=== PATIENT | female | born 1965 | race Caucasian/White ===

== ENCOUNTER 2023-08-14 18:13 | Inpatient (IN) | payer MEDICAID ==
[~2023-08-14] VITALS: Ht 157.5 cm; Wt 61.2 kg
[2023-08-14 18:18] VITALS: O2SAT 100
[2023-08-14 22:49] LABS: BASOPHILS % 0.4 % (0.0-2.0); EOSINOPHILS % 2.9 % (0.0-5.0); HEMATOCRIT. 34.6 % (36.0-48.0); HEMOGLOBIN. 11.6 g/dL (12.0-16.0); LYMPHOCYTES % 27.6 % (20.0-50.0); MEAN CORPUSCULAR HEMOGLOBIN 28.8 pg (28.0-32.0); MEAN CORPUSCULAR HGB CONC 33.5 g/dL (31.0-37.0); MEAN CORPUSCULAR VOLUME 85.8 fL (81.0-99.0); MEAN PLATELET VOLUME 8.9 fl (7.4-10.4); MONOCYTES % 7.2 % (2.0-8.0); NEUTROPHILS % 61.9 % (40.0-76.0); PLATELET 295 x1000/uL (130-400); RED BLOOD CELL COUNT 4.03 mill/uL (4.2-5.4); RED CELL DISTRIBUTION WIDTH 13.1 % (11.6-14.6); WHITE BLOOD COUNT 9.9 x1000/uL (4.5-11.0)
[2023-08-14] MEDS: KETOROLAC 15MG/ML VIAL IV ONE (22:56)
[2023-08-14 22:59] LABS: CHLORIDE 96 mEq/L (98-107); POTASSIUM 3.5 mEq/L (3.5-5.1); SODIUM 125 mEq/L (136-145)
[2023-08-14 23:00] LABS: CALCIUM 9.1 mg/dL (8.7-10.4); CARBON DIOXIDE 21 mEq/L (21-32)
[2023-08-14 23:05] LABS: CREATININE 0.8 mg/dL (0.6-1.0); GLUCOSE 142 mg/dL (70-105); UREA NITROGEN BLOOD 10 mg/dL (9-23)
[2023-08-14 23:07] LABS: ALANINE AMINOTRANSFERASE 34 IU/L (10-49); ALBUMIN 4.2 g/dL (3.2-4.8); ASPARTATE AMINOTRANSFERASE 17 IU/L (<34)
[2023-08-14 23:08] LABS: BILIRUBIN TOTAL 0.4 mg/dL (0.1-1.0); PROTEIN TOTAL 7.5 g/dL (6.0-8.3)
[2023-08-14 23:53] LABS: CLARITY URINE CLEAR (CLEAR); COLOR URINE YELLOW (YELLOW); GLUCOSE URINE 1+ (NEGATIVE); KETONES URINE NEGATIVE (NEGATIVE); LEUKOCYTE ESTERASE URINE NEGATIVE (NEGATIVE); NITRITE URINE NEGATIVE (NEGATIVE); OCCULT BLOOD URINE NEGATIVE (NEGATIVE); PH URINE 5.5 (4.5-8.0); PROTEIN URINE NEGATIVE (NEGATIVE); UROBILINOGEN URINE 0.2 E.U./dL (0.2-1.0)
[2023-08-15 01:29] VITALS: BP 163/115; PULSE 91; RESP 21; TEMP 98.5
[2023-08-15 01:40] VITALS: BP 163/115; PULSE 91; RESP 21; TEMP 98.3
[2023-08-15] MEDS ORDERED: AMLO10TA80 PO (02:39)
[2023-08-15] MEDS ORDERED: ATOR-2 PO (02:39)
[2023-08-15] MEDS ORDERED: BENA40TA91 PO (02:39)
[2023-08-15] MEDS ORDERED: CYCL10TA21 PO (02:39)
[2023-08-15] MEDS ORDERED: DEXTROSE 50% WATER 50ML SYRINGE IV PRN (02:45)
[2023-08-15] MEDS ORDERED: IPRATROPIUM/ALBUTEROL 0.5-3(2.5)MG/3ML NEB HHN PRN (03:00)
[2023-08-15] MEDS: KETOROLAC 15MG/ML VIAL IV PRN (03:16)
[2023-08-15] MEDS: SODIUM CHLORIDE 0.9% 1,000 ML IV SCH (03:28)
[2023-08-15] MEDS: AMLODIPINE 10MG TABLET PO SCH (03:29)
[2023-08-15 04:07] LABS: BACTERIA URINE TRACE; RBC URINE 0-2 /hpf (0-2); SQUAMOUS EPITHELIAL CELL URINE FEW /lpf (RARE/1+); WBC URINE 0-2 /hpf (0-2)
[2023-08-15] MEDS ORDERED: IOHEXOL-300 100 ML BOTTLE ONE (05:33)
[2023-08-15] MEDS: BLOOD SUGAR DIAGNOSTIC STRIP TEST SCH (06:31)
[2023-08-15] MEDS: METOCLOPRAMIDE 10MG/10 ML UDC PO SCH (06:46)
[2023-08-15 06:55] LABS: BASOPHILS % 0.6 % (0.0-2.0); EOSINOPHILS % 2.3 % (0.0-5.0); HEMATOCRIT. 35.2 % (36.0-48.0); HEMOGLOBIN. 11.8 g/dL (12.0-16.0); LYMPHOCYTES % 24.3 % (20.0-50.0); MEAN CORPUSCULAR HEMOGLOBIN 28.7 pg (28.0-32.0); MEAN CORPUSCULAR HGB CONC 33.5 g/dL (31.0-37.0); MEAN CORPUSCULAR VOLUME 85.7 fL (81.0-99.0); MONOCYTES % 6.3 % (2.0-8.0); NEUTROPHILS % 66.5 % (40.0-76.0); PLATELET 260 x1000/uL (130-400); RED BLOOD CELL COUNT 4.11 mill/uL (4.2-5.4); RED CELL DISTRIBUTION WIDTH 13.2 % (11.6-14.6); WHITE BLOOD COUNT 9.1 x1000/uL (4.5-11.0)
[2023-08-15 07:12] LABS: CHLORIDE 98 mEq/L (98-107); POTASSIUM 3.7 mEq/L (3.5-5.1); SODIUM 129 mEq/L (136-145)
[2023-08-15 07:13] LABS: CARBON DIOXIDE 21 mEq/L (21-32)
[2023-08-15 07:14] LABS: CALCIUM 9.6 mg/dL (8.7-10.4)
[2023-08-15 07:18] LABS: CREATININE 0.7 mg/dL (0.6-1.0); GLUCOSE 139 mg/dL (70-105); IRON 60 ug/dL (50-170)
[2023-08-15 07:19] LABS: UREA NITROGEN BLOOD 9 mg/dL (9-23)
[2023-08-15] MEDS: INSULIN LISPRO 100 UNITS/ML SUBCUT SCH (07:20)
[2023-08-15 07:21] LABS: TOTAL IRON BINDING CAPACITY 197 ug/dl (250-425)
[2023-08-15 08:00] VITALS: BP 150/65; PULSE 96; RESP 20; TEMP 98
[2023-08-15] MEDS ORDERED: MEDICATION NOT ON FORMULARY EA (Atorvastatin Calcium 1 TAB) PO SCH (09:00)
[2023-08-15] MEDS ORDERED: MEDICATION NOT ON FORMULARY EA (Benazepril Hcl 1 TAB) PO SCH (09:00)
[2023-08-15] MEDS: FAMOTIDINE 20MG/2ML VIAL IV SCH (09:07)
[2023-08-15] MEDS: ASPIRIN 81MG EC TABLET PO SCH (09:08)
[2023-08-15] MEDS: LISINOPRIL 40MG TABLET PO SCH (09:08)
[2023-08-15] MEDS: ENOXAPARIN 40MG/0.4ML SYR SUBCUT SCH (09:09)
[2023-08-15] MEDS: CYCLOBENZAPRINE 10MG TABLET PO SCH (09:17)
[2023-08-15] MEDS: MAGNESIUM OXIDE 400MG TABLET PO SCH (10:30)
[2023-08-15 12:00] VITALS: BP 142/82; PULSE 93; RESP 21; TEMP 98.7
[2023-08-15 16:00] VITALS: BP 123/72; PULSE 104; RESP 20; TEMP 97.7
[2023-08-15] MEDS ORDERED: GADOTERATE MEGLUMINE 5 MMOL/10 ML VIAL IV ONE (18:59)
[2023-08-15 20:00] VITALS: BP 95/52; PULSE 106; RESP 20; TEMP 97.6
[2023-08-15] MEDS: ATORVASTATIN CALCIUM 40MG TABLET PO SCH (22:12)
[2023-08-16] VITALS: BP 116/69; PULSE 105; RESP 22; TEMP 97.8
[2023-08-16] MEDS: DOCUSATE SODIUM 100MG CAPSULE PO PRN (00:05)
[2023-08-16 04:00] VITALS: BP 122/77; PULSE 87; RESP 18; TEMP 97.6
[2023-08-16 08:00] VITALS: BP 118/62; PULSE 107; RESP 25; TEMP 98.3
[2023-08-16] MEDS: ACETAMINOPHEN 325MG TABLET PO PRN (09:36)
[2023-08-16 12:00] VITALS: BP 117/70; PULSE 97; RESP 25; TEMP 98.1
[2023-08-16 16:00] VITALS: BP 114/61; PULSE 107; RESP 21; TEMP 98.2
[2023-08-16 20:00] VITALS: BP 114/65; PULSE 92; RESP 21; TEMP 98.1
[2023-08-17] VITALS: BP 120/81; PULSE 95; RESP 22; TEMP 97.8
[2023-08-17 04:00] VITALS: BP 135/84; PULSE 90; RESP 18; TEMP 98
[2023-08-17 08:00] VITALS: BP 122/76; PULSE 95; RESP 11; TEMP 98
[2023-08-17 12:00] VITALS: BP 125/77; PULSE 111; RESP 17; TEMP 98.7
[2023-08-17 15:30] VITALS: BP 134/74; PULSE 95; TEMP 98.7
== END 2023-08-17 16:54 | disposition home or self-care (01) | DRG 48 ==
LOC: ER 18:13 → 3WST 08-15 00:35
PROVIDERS: ADMIT Hospitalist; ATTEND Hospitalist
DX: E11.43 Type 2 diabetes mellitus with diabetic autonomic (poly)neuropathy (principal); E87.1 Hypo-osmolality and hyponatremia; K31.84 Gastroparesis; D64.9 Anemia, unspecified; E78.5 Hyperlipidemia, unspecified; R33.8 Other retention of urine; N32.0 Bladder-neck obstruction; Z79.84 Long term (current) use of oral hypoglycemic drugs; Z87.440 Personal history of urinary (tract) infections; Z91.148 Patient's other noncompliance with medication regimen for other reason; Z79.4 Long term (current) use of insulin
CPT/HCPCS: 36415; 72158; 74177; 80048; 80053; 81003; 82962; 83036; 83540; 83550; 83735; 84443; 85025; 93005; 93970; 99285; A9577; J1650; J1815; J1885; J3490; J7030; J8597; Q9967

== ENCOUNTER 2023-10-13 10:23 | Emergency (ER) | payer MEDICAID ==
[~2023-10-13] VITALS: Ht 157.5 cm; Wt 55.8 kg
[~2023-10-13 10:23] MED LIST: AMLO10TA80 PO; ATOR-2 PO; BENA40TA91 PO; CYCL10TA21 PO
[2023-10-13 10:33] VITALS: O2SAT 100
[2023-10-13 14:38] VITALS: BP 124/78; PULSE 80; RESP 16; TEMP 98
== END 2023-10-13 15:14 | disposition home or self-care (01) ==
LOC: ER 12:01
DX: Z46.6 Encounter for fitting and adjustment of urinary device (principal); E11.9 Type 2 diabetes mellitus without complications
CPT/HCPCS: 99281

== ENCOUNTER 2023-10-30 07:33 | Emergency (ER) | payer MEDICAID ==
[~2023-10-30] VITALS: Ht 149.9 cm; Wt 69.0 kg
[2023-10-30 07:45] VITALS: O2SAT 100
[2023-10-30 10:34] LABS: CLARITY URINE CLOUDY (CLEAR); COLOR URINE YELLOW (YELLOW); GLUCOSE URINE 2+ (NEGATIVE); KETONES URINE NEGATIVE (NEGATIVE); LEUKOCYTE ESTERASE URINE 3+ (NEGATIVE); NITRITE URINE NEGATIVE (NEGATIVE); OCCULT BLOOD URINE NEGATIVE (NEGATIVE); PH URINE 5.5 (4.5-8.0); PROTEIN URINE NEGATIVE (NEGATIVE); SPECIFIC GRAVITY URINE 1.011 (1.005-1.030); UROBILINOGEN URINE 0.2 E.U./dL (0.2-1.0)
[2023-10-30 10:58] LABS: BACTERIA URINE 4+; SQUAMOUS EPITHELIAL CELL URINE RARE /lpf (RARE/1+); WBC URINE TNTC /hpf (0-2); YEAST URINE 2+
[2023-10-30 10:59] LABS: RBC URINE NONE SEEN /hpf (0-2)
[2023-10-30 11:20] LABS: BASOPHILS % 0.6 % (0.0-2.0); EOSINOPHILS % 4.6 % (0.0-5.0); HEMATOCRIT. 35.9 % (36.0-48.0); HEMOGLOBIN. 11.5 g/dL (12.0-16.0); LYMPHOCYTES % 19.3 % (20.0-50.0); MEAN CORPUSCULAR HEMOGLOBIN 27.3 pg (28.0-32.0); MEAN CORPUSCULAR VOLUME 85.2 fL (81.0-99.0); MEAN PLATELET VOLUME 8.9 fl (7.4-10.4); MONOCYTES % 6.8 % (2.0-8.0); NEUTROPHILS % 68.7 % (40.0-76.0); PLATELET 310 x1000/uL (130-400); RED BLOOD CELL COUNT 4.21 mill/uL (4.2-5.4); WHITE BLOOD COUNT 10.2 x1000/uL (4.5-11.0)
[2023-10-30 11:24] LABS: CHLORIDE 102 mEq/L (98-107); POTASSIUM 4.6 mEq/L (3.5-5.1); SODIUM 133 mEq/L (136-145)
[2023-10-30 11:25] LABS: CARBON DIOXIDE 24 mEq/L (21-32)
[2023-10-30 11:26] LABS: CALCIUM 9.5 mg/dL (8.7-10.4)
[2023-10-30 11:30] LABS: CREATININE 0.9 mg/dL (0.6-1.0)
[2023-10-30 11:31] LABS: GLUCOSE 239 mg/dL (70-105); UREA NITROGEN BLOOD 15 mg/dL (9-23)
[2023-10-30] MEDS: CEFTRIAXONE SODIUM 1G VIAL IM ONE (12:11)
[2023-10-30] MEDS: LIDOCAINE HCL 1% 20ML VIAL INFIL ONE (12:11)
[2023-10-30 12:16] VITALS: BP 126/73; PULSE 100; RESP 17; TEMP 98.2
[2023-10-30] MEDS ORDERED: CEFP200T13 MT (12:18)
[2023-10-30] MEDS ORDERED: FLUC200T51 MT (12:18)
== END 2023-10-30 13:05 | disposition home or self-care (01) ==
LOC: ER 07:33
DX: R33.9 Retention of urine, unspecified (principal); N39.0 Urinary tract infection, site not specified; E11.9 Type 2 diabetes mellitus without complications
CPT/HCPCS: 80048; 81003; 87106; 85025; 87086; 87186; 87077; 36415; 51702; 96372; 99284; J0696; J3490; Z7610